=== PATIENT | female | born 1950 | race Caucasian/White ===

== ENCOUNTER 2017-02-27 12:26 | Emergency (ER) | payer BC ==
[2017-02-27 12:35] VITALS: RESP 18
[2017-02-27] MEDS ORDERED: SODIUM CHLORIDE 0.9% 1,000 ML IV STA (13:58)
--- NOTE | 2017-02-27 14:01 | ED ---
General Adult HPI - General Chief complaint: Recheck/Abnormal Lab/Rx Stated complaint: Med refill Time Seen by Provider: 02/27/17 13:35 Source: patient, RN notes reviewed Mode of arrival: ambulatory Limitations: no limitations - History of Present Illness Initial comments: Patient 66-year-old female who presents emergency room today with a chief complaint of joint aches and swelling to her feet. She states that she stopped taking her thyroid medication or 5 weeks ago. She states she was in the process of changing family doctor she became dizzy had a hard time getting into an family doctor and has an appointment next week. She states that over the last 3 days that she's been feeling worse. She states she feels "achy". She states that she's noticed the swelling down to her legs. States never had this problem before. She states she wakes up in the morning and at times had some episodes of hyperventilating. She states that she is unsure if it's to some anxiety. She denies any other symptoms or complaints. Patient denies any recent fever, chills, shortness of breath, chest pain, back pain, abdominal pain , nausea or vomiting, numbness or tingling, dysuria or hematuria, constipation or diarrhea, headaches or visual changes, or any other complaints. - Related Data Home Medications Medication Instructions Recorded Confirmed Thyroid,Pork [[place] Thyroid] 90 mg PO DAILY 02/27/17 02/27/17 Venlafaxine HCl [Effexor XR] 150 mg PO DAILY 02/27/17 02/27/17 Previous Rx's Medication Instructions Recorded Thyroid,Pork [[place] Thyroid] 90 mg PO DAILY #30 tab 02/27/17 amLODIPine [Norvasc] 5 mg PO DAILY #30 tab 02/27/17 Allergies Allergy/AdvReac Type Severity Reaction Status Date / Time codeine AdvReac Nausea & Verified 02/27/17 14:17 Vomiting Review of Systems ROS Statement: Those systems with pertinent positive or pertinent negative responses have been documented in the HPI. ROS Other: All systems not noted in ROS Statement are negative. Past Medical History Past Medical History: Thyroid Disorder History of Any Multi-Drug Resistant Organisms: None Reported Past Surgical History: Tonsillectomy Past Psychological History: Anxiety, Depression Smoking Status: Never smoker Past Alcohol Use History: Occasional Past Drug Use History: None Reported General Exam - General Exam Comments Initial Comments: General: The patient is awake and alert, in no distress, and does not appear acutely ill. Eye: Pupils are equal, round and reactive to light, extra-ocular movements are intact. No nystagmus. There is normal conjunctiva bilaterally. No signs of icterus. Ears, nose, mouth and throat: There are moist mucous membranes and no oral lesions. Neck: The neck is supple, there is no tenderness or JVD. Cardiovascular: There is a regular rate and rhythm. No murmur, rub or gallop is appreciated. Respiratory: Lungs are clear to auscultation, respirations are non-labored, breath sounds are equal. No wheezes, stridor, rales, or rhonchi. Gastrointestinal: Soft, non-distended, non-tender abdomen without masses or organomegaly noted. There is no rebound or guarding present. No CVA tenderness. Bowel sounds are unremarkable. Musculoskeletal: Normal ROM, no tenderness. Strength 5/5. Sensation intact. Pulses equal bilaterally 2+. Neurological: A&O x 3. CN II-XII intact, There are no obvious motor or sensory deficits. Coordination appears grossly intact. Speech is normal. Skin: Skin is warm and dry and no rashes or lesions are noted. Psychiatric: Cooperative, appropriate mood & affect, normal judgment. Limitations: no limitations Course Vital Signs 02/27/17 02/27/17 02/27/17 12:30 14:00 15:00 Temperature 98.4 F 97.5 F L 97.9 F Pulse Rate 72 62 60 Respiratory 18 18 18 Rate Blood Pressure 194/87 218/92 194/122 O2 Sat by Pulse 96 97 97 Oximetry 02/27/17 15:22 Temperature Pulse Rate Respiratory Rate Blood Pressure 179/84 O2 Sat by Pulse Oximetry Medical Decision Making - Medical Decision Making Case discussed in detail with attending physician Dr. Arreola. Patient reexamined at this time shows no signs of distress. She is resting comfortably. She states she like to be discharged home. Her labs do reveal a TSH greater than 100. Mildly elevated AST and ALT. BNP is negative. Chest x-ray negative for any acute abnormalities. Results were discussed with the patient. Her blood pressure has been elevated here in the emergency room she denies any history. Was discussed about being admitted to the hospital but she states she does not want to be admitted. She states she did rather be discharged home. Patient will be given a prescription for her thyroid medication dose that she was taking prior along with blood pressure medication. She does state she has a blood pressure cuff at home that she can continue to check her blood pressure. Patient is advised to return to emergency room if any symptoms increase or worsen. She is advised follow-up family doctor over the next 2 days. Advised return for any other concerns. She states understanding and is in agreement. - Lab Data Result diagrams: 02/27/17 14:05 02/27/17 14:05 Lab Results 02/27/17 02/27/17 02/27/17 Range/Units 13:45 14:05 14:05 WBC 8.9 (3.8-10.6) k/uL RBC 4.26 (3.80-5.40) m/uL Hgb 13.7 (11.4-16.0) gm/dL Hct 40.0 (34.0-46.0) % MCV 93.9 (80.0-100.0) fL MCH 32.1 (25.0-35.0) pg MCHC 34.2 (31.0-37.0) g/dL RDW 15.1 (11.5-15.5) % Plt Count 304 (150-450) k/uL Neutrophils % 51 % Lymphocytes % 40 % Monocytes % 4 % Eosinophils % 2 % Basophils % 1 % Neutrophils # 4.5 (1.3-7.7) k/uL Lymphocytes # 3.5 (1.0-4.8) k/uL Monocytes # 0.4 (0-1.0) k/uL Eosinophils # 0.2 (0-0.7) k/uL Basophils # 0.1 (0-0.2) k/uL Sodium (137-145) mmol/L Potassium (3.5-5.1) mmol/L Chloride (98-107) mmol/L Carbon Dioxide (22-30) mmol/L Anion Gap mmol/L BUN (7-17) mg/dL Creatinine (0.52-1.04) mg/dL Est GFR (MDRD) Af Amer (>60 ml/min/1.73 sqM) Est GFR (MDRD) Non-Af (>60 ml/min/1.73 sqM) Glucose (74-99) mg/dL Calcium (8.4-10.2) mg/dL Total Bilirubin (0.2-1.3) mg/dL AST (14-36) U/L ALT (9-52) U/L Alkaline Phosphatase (38-126) U/L NT-Pro-B Natriuret Pep pg/mL Total Protein (6.3-8.2) g/dL Albumin (3.5-5.0) g/dL TSH >100.000 H (0.465-4.680) mIU/L Urine Color Yellow Urine Appearance Cloudy H (Clear) Urine pH 6.0 (5.0-8.0) Ur Specific [place] 1.018 (1.001-1.035) Urine Protein 1+ H (Negative) Urine Glucose (UA) Negative (Negative) Urine Ketones Negative (Negative) Urine Blood Negative (Negative) Urine Nitrite Negative (Negative) Urine Bilirubin Negative (Negative) Urine Urobilinogen <2.0 (<2.0) mg/dL Ur Leukocyte Esterase Negative (Negative) Urine WBC 5 (0-5) /hpf Ur Squamous Epith Cells 11 H (0-4) /hpf Calcium Oxalate Crystal Moderate H (None) /hpf Urine Bacteria Rare H (None) /hpf Urine Mucus Few H (None) /hpf 02/27/17 02/27/17 Range/Units 14:05 14:05 WBC (3.8-10.6) k/uL RBC (3.80-5.40) m/uL Hgb (11.4-16.0) gm/dL Hct (34.0-46.0) % MCV (80.0-100.0) fL MCH (25.0-35.0) pg MCHC (31.0-37.0) g/dL RDW (11.5-15.5) % Plt Count (150-450) k/uL Neutrophils % % Lymphocytes % % Monocytes % % Eosinophils % % Basophils % % Neutrophils # (1.3-7.7) k/uL Lymphocytes # (1.0-4.8) k/uL Monocytes # (0-1.0) k/uL Eosinophils # (0-0.7) k/uL Basophils # (0-0.2) k/uL Sodium 141 (137-145) mmol/L Potassium 4.4 (3.5-5.1) mmol/L Chloride 102 (98-107) mmol/L Carbon Dioxide 30 (22-30) mmol/L Anion Gap 9 mmol/L BUN 21 H (7-17) mg/dL Creatinine 0.91 (0.52-1.04) mg/dL Est GFR (MDRD) Af Amer >60 (>60 ml/min/1.73 sqM) Est GFR (MDRD) Non-Af >60 (>60 ml/min/1.73 sqM) Glucose 91 (74-99) mg/dL Calcium 10.0 (8.4-10.2) mg/dL Total Bilirubin 0.7 (0.2-1.3) mg/dL AST 75 H (14-36) U/L ALT 59 H (9-52) U/L Alkaline Phosphatase 74 (38-126) U/L NT-Pro-B Natriuret Pep 165 pg/mL Total Protein 8.0 (6.3-8.2) g/dL Albumin 4.7 (3.5-5.0) g/dL TSH (0.465-4.680) mIU/L Urine Color Urine Appearance (Clear) Urine pH (5.0-8.0) Ur Specific [place] (1.001-1.035) Urine Protein (Negative) Urine Glucose (UA) (Negative) Urine Ketones (Negative) Urine Blood (Negative) Urine Nitrite (Negative) Urine Bilirubin (Negative) Urine Urobilinogen (<2.0) mg/dL Ur Leukocyte Esterase (Negative) Urine WBC (0-5) /hpf Ur Squamous Epith Cells (0-4) /hpf Calcium Oxalate Crystal (None) /hpf Urine Bacteria (None) /hpf Urine Mucus (None) /hpf Disposition Clinical Impression: Hypothyroidism, HTN (hypertension) Disposition: HOME SELF-CARE Condition: Stable Instructions: Hypothyroidism (ED) Additional Instructions: Please use medication as discussed. Please follow-up with family doctor in the next 2 days. Please return to emergency room if the symptoms increase or worsen or for any other concerns. Prescriptions: amLODIPine [Norvasc] 5 mg PO DAILY #30 tab Thyroid,Pork [[place] Thyroid] 90 mg PO DAILY #30 tab Referrals: None,Stated [Primary Care Provider] - 1-2 days Leyla Queen MD [STAFF PHYSICIAN] - 1-2 days Time of Disposition: 15:45
[2017-02-27] MEDS ORDERED: hydrALAZINE HCL 20 MG/ML 1 ML VIAL IVP STA (14:19)
[2017-02-27 14:22] LABS: Basophils # (A) 0.1 k/uL (0-0.2); Basophils % (A) 1 %; CH 32.6; CHCM 34.9; Eosinophils # (A) 0.2 k/uL (0-0.7); Eosinophils % (A) 2 %; HDW 2.67; HGB 13.7 gm/dL (11.4-16.0); Luc # (Auto) 0.19; Luc % (Auto) 2; Lymphocytes # (A) 3.5 k/uL (1.0-4.8); Lymphocytes % (A) 40 %; MCH 32.1 pg (25.0-35.0); MCHC 34.2 g/dL (31.0-37.0); MCV 93.9 fL (80.0-100.0); Mean Platelet Volume 7.5; Monocytes # (A) 0.4 k/uL (0-1.0); Monocytes % (A) 4 %; Neutrophils # (A) 4.5 k/uL (1.3-7.7); Neutrophils % (A) 51 %; RBC 4.26 m/uL (3.80-5.40); RDW 15.1 % (11.5-15.5); WBC 8.9 k/uL (3.8-10.6); WBC (Perox) 8.47
[2017-02-27 14:35] LABS: Appearance,Urine Cloudy (Clear); Bacteria,Urine Rare /hpf; Bilirubin,Urine Negative (Negative); Calcium Oxalate Crystals,Urine Moderate /hpf; Glucose,Urine (UA) Negative (Negative); Ketones,Urine Negative (Negative); Leukocyte Esterase,Urine Negative (Negative); Mucus,Urine Few /hpf; Nitrite,Urine Negative (Negative); Particle Count 4099; Protein,Urine 1+ (Negative); Specific Gravity,Urine 1.018 (1.001-1.035); Squamous Epithelial Cell,Urine 11 /hpf (0-4); UA Billing (MACRO vs. MICRO) MICRO; Urobilinogen,Urine <2.0 mg/dL (<2.0); WBC,Urine 5 /hpf (0-5)
[2017-02-27 14:47] LABS: ALT 59 U/L (9-52); AST 75 U/L (14-36); Alkaline Phosphatase 74 U/L (38-126); Anion Gap 9 mmol/L; Blood Urea Nitrogen 21 mg/dL (7-17); Carbon Dioxide 30 mmol/L (22-30); Chloride 102 mmol/L (98-107); Glucose 91 mg/dL (74-99); Non-African American GFR(MDRD) >60 (>60 ml/min/1.73 sqM); Potassium 4.4 mmol/L (3.5-5.1); Sodium 141 mmol/L (137-145); Total Bilirubin 0.7 mg/dL (0.2-1.3)
[2017-02-27] MEDS ORDERED: ALPRAZolam 0.5 MG TAB PO STA (15:19)
--- NOTE | 2017-02-27 15:20 | XR ---
EXAMINATION TYPE: XR chest 2V DATE OF EXAM: 02/27/2017 COMPARISON: NONE HISTORY: Leg swelling per order. Retention per patient. TECHNIQUE: Frontal and lateral views of the chest are obtained. FINDINGS: There is no focal air space opacity, pleural effusion, or pneumothorax seen. The cardiac silhouette size is mildly enlarged. The osseous structures are intact. IMPRESSION: Mild cardiomegaly without acute pulmonary process.
[2017-02-27 16:16] VITALS: BP 160/80; PULSE 72; TEMP 97.8
== END 2017-02-27 16:10 | disposition home or self-care (01) ==
LOC: EC 12:26
DX: E03.9 Hypothyroidism, unspecified (principal); I10 Essential (primary) hypertension; F32.9 Major depressive disorder, single episode, unspecified; Z88.5 Allergy status to narcotic agent; Z79.899 Other long term (current) drug therapy
CPT/HCPCS: 99283; 96374; 96361; 36415; 84439; 83880; 80053; 84443; 85025; 81001; 71020; J0360

== ENCOUNTER 2019-01-07 13:03 | Inpatient (IN) | payer BC, MEDICARE ==
[2019-01-07] MEDS ORDERED: SODIUM CHLORIDE 0.9% 1,000 ML IV STA ×3 (13:13→13:50)
--- NOTE | 2019-01-07 13:18 | ED ---
Abdominal Pain HPI - General Stated Complaint: Vomiting Time Seen by Provider: 01/07/19 13:03 Source: patient, family, EMS, RN notes reviewed Mode of arrival: EMS - History of Present Illness Initial Comments: This is a 68-year-old female with a necessity benign history except for diagnosis of ovarian cancer who states she received her first chemotherapy 3 days ago. After the first day she felt okay but progressively gotten more weak with nausea and today she was so weak she couldn't walk. She has no complaints of fevers chills or sweats she was noted have a pulse ox of 70% room air 95% on 4 L. She does take oxygen at home. Per her sister he recently had a thoracentesis she also had fluid in her abdomen. She does complain some mild discomfort in her abdomen as it is distended she has no focal weakness is generalized weakness really no other modifying factors MD Complaint: other - Related Data Home Medications Medication Instructions Recorded Confirmed Venlafaxine HCl [Effexor XR] 150 mg PO DAILY 02/27/17 01/07/19 ALPRAZolam [Xanax] 0.5 mg PO TID PRN 01/07/19 01/07/19 amLODIPine [Norvasc] 10 mg PO DAILY 01/07/19 01/07/19 Previous Rx's Medication Instructions Recorded Thyroid,Pork [[place] Thyroid] 90 mg PO DAILY #30 tab 02/27/17 Allergies Allergy/AdvReac Type Severity Reaction Status Date / Time penicillin V Allergy Unknown Verified 01/07/19 13:40 codeine AdvReac Nausea & Verified 02/27/17 14:17 Vomiting Review of Systems ROS Statement: Those systems with pertinent positive or pertinent negative responses have been documented in the HPI. ROS Other: All systems not noted in ROS Statement are negative. Past Medical History Past Medical History: Thyroid Disorder History of Any Multi-Drug Resistant Organisms: None Reported Past Surgical History: Tonsillectomy Past Psychological History: Anxiety, Depression Smoking Status: Never smoker Past Alcohol Use History: Occasional Past Drug Use History: None Reported General Exam - General Exam Comments Initial Comments: This is a well-developed well-nourished awake alert oriented 3 female General appearance: alert, in no apparent distress Head exam: Present: atraumatic, normocephalic, normal inspection Eye exam: Present: normal appearance, PERRL, EOMI. Absent: scleral icterus, conjunctival injection, periorbital swelling ENT exam: Present: mucous membranes dry Neck exam: Present: normal inspection. Absent: tenderness, meningismus, lymphadenopathy Respiratory exam: Absent: respiratory distress, wheezes, rales, rhonchi, stridor Cardiovascular Exam: Present: regular rate, normal rhythm, normal heart sounds. Absent: systolic murmur, diastolic murmur, rubs, gallop, clicks GI/Abdominal exam: Present: soft, distended, normal bowel sounds, other ( Evidence clinically of ascites). Absent: tenderness, guarding, rebound, rigid Extremities exam: Present: normal inspection, full ROM, normal capillary refill. Absent: tenderness, pedal edema, joint swelling, calf tenderness Back exam: Present: normal inspection Neurological exam: Present: alert, oriented X3, CN II-XII intact Psychiatric exam: Present: normal affect, normal mood Skin exam: Present: warm, dry, intact, normal color. Absent: rash Course Vital Signs 01/07/19 13:19 Temperature 98.4 F Pulse Rate 95 Respiratory 16 Rate Blood Pressure 134/84 O2 Sat by Pulse 90 L Oximetry Medical Decision Making - Medical Decision Making Patient is feeling a little bit better after IV fluid she still is weak no focal deficits we a long discussion regarding disposition patient and his not quite for discharge due to her symptoms which likely largely due to dehydration. We did discuss transfer versus staying in this facility she requests that she can say here I did discuss the case with Dr. Jarvis patient will be admitted for IV hydration. - Lab Data Result diagrams: 01/07/19 13:17 01/07/19 13:17 Lab Results 01/07/19 01/07/19 01/07/19 Range/Units 13:17 13:17 13:17 WBC 11.7 H (3.8-10.6) k/uL RBC 3.38 L (3.80-5.40) m/uL Hgb 9.4 L (11.4-16.0) gm/dL Hct 29.8 L (34.0-46.0) % MCV 88.1 (80.0-100.0) fL MCH 27.7 (25.0-35.0) pg MCHC 31.4 (31.0-37.0) g/dL RDW 14.4 (11.5-15.5) % Plt Count 529 H (150-450) k/uL Neutrophils % 93 % Lymphocytes % 4 % Monocytes % 3 % Eosinophils % 0 % Basophils % 0 % Neutrophils # 10.9 H (1.3-7.7) k/uL Lymphocytes # 0.4 L (1.0-4.8) k/uL Monocytes # 0.3 (0-1.0) k/uL Eosinophils # 0.0 (0-0.7) k/uL Basophils # 0.0 (0-0.2) k/uL Hypochromasia Moderate Sodium 138 (137-145) mmol/L Potassium 3.8 (3.5-5.1) mmol/L Chloride 104 (98-107) mmol/L Carbon Dioxide 27 (22-30) mmol/L Anion Gap 7 mmol/L BUN 35 H (7-17) mg/dL Creatinine 0.60 (0.52-1.04) mg/dL Est GFR (CKD-EPI)AfAm >90 (>60 ml/min/1.73 sqM) Est GFR (CKD-EPI)NonAf >90 (>60 ml/min/1.73 sqM) Glucose 120 H (74-99) mg/dL Calcium 7.5 L (8.4-10.2) mg/dL Magnesium 1.9 (1.6-2.3) mg/dL Total Bilirubin 0.6 (0.2-1.3) mg/dL AST 48 H (14-36) U/L ALT 34 (9-52) U/L Alkaline Phosphatase 131 H (38-126) U/L Total Creatine Kinase 31 (30-135) U/L CK-MB (CK-2) 0.7 (0.0-2.4) ng/mL CK-MB (CK-2) Rel Index 2.3 Total Protein 5.2 L (6.3-8.2) g/dL Albumin 2.4 L (3.5-5.0) g/dL Urine Color Urine Appearance (Clear) Urine pH (5.0-8.0) Ur Specific [place] (1.001-1.035) Urine Protein (Negative) Urine Glucose (UA) (Negative) Urine Ketones (Negative) Urine Blood (Negative) Urine Nitrite (Negative) Urine Bilirubin (Negative) Urine Urobilinogen (<2.0) mg/dL Ur Leukocyte Esterase (Negative) Urine WBC (0-5) /hpf Ur Squamous Epith Cells (0-4) /hpf Urine Bacteria (None) /hpf Urine Mucus (None) /hpf 01/07/19 Range/Units 13:17 WBC (3.8-10.6) k/uL RBC (3.80-5.40) m/uL Hgb (11.4-16.0) gm/dL Hct (34.0-46.0) % MCV (80.0-100.0) fL MCH (25.0-35.0) pg MCHC (31.0-37.0) g/dL RDW (11.5-15.5) % Plt Count (150-450) k/uL Neutrophils % % Lymphocytes % % Monocytes % % Eosinophils % % Basophils % % Neutrophils # (1.3-7.7) k/uL Lymphocytes # (1.0-4.8) k/uL Monocytes # (0-1.0) k/uL Eosinophils # (0-0.7) k/uL Basophils # (0-0.2) k/uL Hypochromasia Sodium (137-145) mmol/L Potassium (3.5-5.1) mmol/L Chloride (98-107) mmol/L Carbon Dioxide (22-30) mmol/L Anion Gap mmol/L BUN (7-17) mg/dL Creatinine (0.52-1.04) mg/dL Est GFR (CKD-EPI)AfAm (>60 ml/min/1.73 sqM) Est GFR (CKD-EPI)NonAf (>60 ml/min/1.73 sqM) Glucose (74-99) mg/dL Calcium (8.4-10.2) mg/dL Magnesium (1.6-2.3) mg/dL Total Bilirubin (0.2-1.3) mg/dL AST (14-36) U/L ALT (9-52) U/L Alkaline Phosphatase (38-126) U/L Total Creatine Kinase (30-135) U/L CK-MB (CK-2) (0.0-2.4) ng/mL CK-MB (CK-2) Rel Index Total Protein (6.3-8.2) g/dL Albumin (3.5-5.0) g/dL Urine Color Yellow Urine Appearance Clear (Clear) Urine pH 6.0 (5.0-8.0) Ur Specific [place] 1.029 (1.001-1.035) Urine Protein 1+ H (Negative) Urine Glucose (UA) Negative (Negative) Urine Ketones Negative (Negative) Urine Blood Small H (Negative) Urine Nitrite Negative (Negative) Urine Bilirubin Negative (Negative) Urine Urobilinogen >12.0 (<2.0) mg/dL Ur Leukocyte Esterase Small H (Negative) Urine WBC 12 H (0-5) /hpf Ur Squamous Epith Cells 3 (0-4) /hpf Urine Bacteria Rare H (None) /hpf Urine Mucus Rare H (None) /hpf - EKG Data -: EKG Interpreted by Me EKG shows normal: sinus rhythm (EKG shows sinus rhythm with a short CT interval ventricular rate 92 CT interval 96 QRS 76 QT since QTC 354/[address]-T wave changes.) - Radiology Data Radiology results: image reviewed (I did review the imaging evidence a right pleural effusion slight left pleural effusion.) Disposition Clinical Impression: Dehydration, Ovarian cancer, Failure to thrive, Weakness Disposition: ADMITTED IP TO THIS [facility] Condition: Fair Referrals: None,Stated [Primary Care Provider] - 1-2 days
[2019-01-07 13:30] LABS: Basophils % (A) 0 %; Eosinophils % (A) 0 %; HCT 29.8 % (34.0-46.0); HGB 9.4 gm/dL (11.4-16.0); Hypochromasia Moderate; Lymphocytes # (A) 0.4 k/uL (1.0-4.8); Lymphocytes % (A) 4 %; MCH 27.7 pg (25.0-35.0); MCHC 31.4 g/dL (31.0-37.0); MCV 88.1 fL (80.0-100.0); Mean Platelet Volume 7.8; Monocytes # (A) 0.3 k/uL (0-1.0); Monocytes % (A) 3 %; Neutrophils # (A) 10.9 k/uL (1.3-7.7); Neutrophils % (A) 93 %; Platelet Count 529 k/uL (150-450); RBC 3.38 m/uL (3.80-5.40); RDW 14.4 % (11.5-15.5); WBC 11.7 k/uL (3.8-10.6)
[2019-01-07 13:39] LABS: ALT 34 U/L (9-52); AST 48 U/L (14-36); Albumin 2.4 g/dL (3.5-5.0); Alkaline Phosphatase 131 U/L (38-126); Anion Gap 7 mmol/L; Blood Urea Nitrogen 35 mg/dL (7-17); Calcium 7.5 mg/dL (8.4-10.2); Carbon Dioxide 27 mmol/L (22-30); Chloride 104 mmol/L (98-107); Glucose 120 mg/dL (74-99); Magnesium 1.9 mg/dL (1.6-2.3); Potassium 3.8 mmol/L (3.5-5.1); Sodium 138 mmol/L (137-145); Total Bilirubin 0.6 mg/dL (0.2-1.3); Total Protein 5.2 g/dL (6.3-8.2)
[2019-01-07 13:45] LABS: Appearance,Urine Clear (Clear); Bacteria,Urine Rare /hpf; Bilirubin,Urine Negative (Negative); Blood,Urine Small (Negative); Color,Urine Yellow; Glucose,Urine (UA) Negative (Negative); Ketones,Urine Negative (Negative); Leukocyte Esterase,Urine Small (Negative); Mucus,Urine Rare /hpf; Nitrite,Urine Negative (Negative); Protein,Urine 1+ (Negative); Specific Gravity,Urine 1.029 (1.001-1.035); Squamous Epithelial Cell,Urine 3 /hpf (0-4); Urobilinogen,Urine >12.0 mg/dL (<2.0)
[2019-01-07 14:02] LABS: Creatine Kinase MB 0.7 ng/mL (0.0-2.4)
[2019-01-07] MEDS ORDERED: HYDROmorphone 1 MG/ML 1 ML SYRINGE IVP STA (14:16)
--- NOTE | 2019-01-07 14:51 | XR ---
EXAMINATION TYPE: XR chest 2V DATE OF EXAM: 01/07/2019 COMPARISON: 02/27/2017 HISTORY: 68-year-old female with cough TECHNIQUE: AP and lateral views FINDINGS: The heart is upper limits of normal in size. Right anterior chest wall injection port with catheter t ip at the cavoatrial junction. There is a moderate right and small left pleural effusions with bibasi lar opacities. IMPRESSION: Moderate right and small left pleural effusions with bibasilar atelectasis and/or consolidation.
--- NOTE | 2019-01-07 14:52 | XR ---
EXAMINATION TYPE: XR KUB DATE OF EXAM: 01/07/2019 CLINICAL DATA: 68-year-old female with pain, status post chemotherapy for ovarian cancer, [facility] COMPARISON: None FINDINGS: Supine imaging limited for assessment of free intraperitoneal air. Nonspecific bowel gas pattern, generalized haziness throughout the abdomen overall positive bowel gas . IMPRESSION: Nonspecific bowel gas pattern with relative positive bowel gas. Generalized haziness throughout the a bdomen could represent underlying ascites.
[2019-01-07] MEDS ORDERED: ONDANSETRON 4 MG/2 ML VIAL IVP PRN (15:14)
[2019-01-07] MEDS ORDERED: NALOXONE 0.4 MG/ML 1 ML VIAL IV PRN (15:14)
--- NOTE | 2019-01-07 15:55 | P.HPIM ---
History of Present Illness H&P Date: 01/07/19 Chief Complaint: weakness with nausea and vomiting The patient is a obese 68-year-old female with recently diagnosed ovarian cancer who began chemotherapy last week at [facility] today she presents to the ER with chief complaint of nausea vomiting and weakness. Apparently the patient began chemotherapy on Wednesday and yesterday began having profound nausea vomiting and inability to keep food or fluids down, she reports decreased appetite, and reports generalized weakness worsen her lower extremities and reports difficulty ambulating due to the weakness. Apparently the patient wears 3 L of oxygen secondary to recurrent malignant pleural effusions, she reports having a thoracentesis approximately 2 weeks ago and reports abdominal paracentesis a week ago where approximately 3 and 4 L respectively was obtained. She mentions increasing abdominal distention with some discomfort. She denies any chest pain or palpitations, also denies any subjective fevers chills or night sweats. The patient is currently receiving chemotherapy through the [facility] system. In the ER the patient had a comprehensive workup she had a KUB and chest x-ray, that showed a nonspecific bowel gas pattern generalized haziness throughout abdomen which could represent underlying ascites and a moderate right and small, Left pleural effusion with bibasilar atelectasis or consolidation. Remarkable labs included a WBC of 11.7, hemoglobin 9.4, platelets 529. Serum sodium 138. Potassium 3.8, BUN 35, creatinine 0.6. AST 48, ALT 34, alk phos 131, total protein 5.2, albumin 2.4, urinalysis +1 protein, urine WBCs 12. The patient was given 2 L of normal saline and placed on maintenance fluids and started on Dilaudid for pain. Review of Systems Pertinent positives per HPI all other systems otherwise negative Past Medical History Past Medical History: Thyroid Disorder History of Any Multi-Drug Resistant Organisms: None Reported Past Surgical History: Tonsillectomy Past Psychological History: Anxiety, Depression Smoking Status: Never smoker Past Alcohol Use History: Occasional Past Drug Use History: None Reported Medications and Allergies Home Medications Medication Instructions Recorded Confirmed Type Thyroid,Pork [[place] Thyroid] 90 mg PO DAILY #30 tab 02/27/17 01/07/19 Rx Venlafaxine HCl [Effexor XR] 150 mg PO DAILY 02/27/17 01/07/19 History ALPRAZolam [Xanax] 0.5 mg PO TID PRN 01/07/19 01/07/19 History amLODIPine [Norvasc] 10 mg PO DAILY 01/07/19 01/07/19 History Allergies Allergy/AdvReac Type Severity Reaction Status Date / Time penicillin V Allergy Unknown Verified 01/07/19 13:40 codeine AdvReac Nausea & Verified 02/27/17 14:17 Vomiting Physical Exam Vitals: Vital Signs Temp Pulse Resp BP Pulse Ox 01/07/19 13:19 98.4 F 95 16 134/84 90 L Intake and Output 01/07/19 01/07/19 01/07/19 06:59 14:59 22:59 Other: Weight 81.647 kg Constitutional: No acute distress, appears fatigued and drowsy but arousable Eyes: Anicteric sclerae, moist conjunctiva, no lid-lag, PERRLA ENMT: NC/AT,Oropharynx clear, no erythema, exudates Neck:Supple, FROM, no masses, or JVD, No carotid bruits; No thyromegaly Lungs: Diminished in the bases bilaterally, poor aeration right greater than left,Normal respiratory effort, no accessory muscle use on 3 L nasal cannula Cardiovascular: Heart regular in rate and rhythm, No murmurs, gallops, or rubs no peripheral edema Abdominal: Soft Nontender, distended abdomen, no guarding, no rebound or rigidity, noted shifting dullness Skin: Normal temperature, tone, texture, turgor, No induration No subcutaneous nodules, No rash, lesions, No ulcers Extremities:No digital cyanosis No clubbing, Pedal pulses intact and symmetrical Radial pulses intact and symmetrical Normal gait and station, No calf tenderness Psychiatric: Alert and oriented to person, place and time, Appropriate affect Intact judgement Neuro: Muscles Strength 5/5 in all 4 extremities, Sensation to light touch g rossly present throughout, Cranial nerves II-XII grossly intact. No focal sensory deficits Results CBC & Chem 7: 01/07/19 13:17 01/07/19 13:17 Labs: Abnormal Lab Results - Last 24 Hours (Table) 01/07/19 01/07/19 01/07/19 Range/Units 13:17 13:17 13:17 WBC 11.7 H (3.8-10.6) k/uL RBC 3.38 L (3.80-5.40) m/uL Hgb 9.4 L (11.4-16.0) gm/dL Hct 29.8 L (34.0-46.0) % Plt Count 529 H (150-450) k/uL Neutrophils # 10.9 H (1.3-7.7) k/uL Lymphocytes # 0.4 L (1.0-4.8) k/uL BUN 35 H (7-17) mg/dL Glucose 120 H (74-99) mg/dL Calcium 7.5 L (8.4-10.2) mg/dL AST 48 H (14-36) U/L Alkaline Phosphatase 131 H (38-126) U/L Total Protein 5.2 L (6.3-8.2) g/dL Albumin 2.4 L (3.5-5.0) g/dL Urine Protein 1+ H (Negative) Urine Blood Small H (Negative) Ur Leukocyte Esterase Small H (Negative) Urine WBC 12 H (0-5) /hpf Urine Bacteria Rare H (None) /hpf Urine Mucus Rare H (None) /hpf Assessment and Plan (1) Acute and chronic respiratory failure ([id number]) Current Visit: Yes Status: Acute Code(s): J96.20 - ACUTE AND CHR RESP FAILURE, UNSP W HYPOXIA OR HYPERCAPNIA SNOMED Code(s): 81961776 (2) Intractable nausea and vomiting Current Visit: Yes Status: Acute Code(s): R11.2 - NAUSEA WITH VOMITING, UNSPECIFIED SNOMED Code(s): 913214519 (3) Malignant pleural effusion Current Visit: Yes Status: Acute Code(s): J91.0 - MALIGNANT PLEURAL EFFUSION SNOMED Code(s): 95207274 (4) Weakness Current Visit: Yes Status: Acute Code(s): R53.1 - WEAKNESS SNOMED Code(s): 45636008 (5) Ascites, malignant Current Visit: Yes Status: Acute Code(s): R18.0 - MALIGNANT ASCITES SNOMED Code(s): 778271119 (6) Ovarian cancer Current Visit: Yes Status: Acute Code(s): C56.9 - MALIGNANT NEOPLASM OF UNSPECIFIED OVARY SNOMED Code(s): 172404220 (7) Weakness Current Visit: Yes Status: Acute Code(s): R53.1 - WEAKNESS SNOMED Code(s): 57124211 Plan: The patient is in observation anticipate a less than 2 midnight stay after presenting with intractable nausea vomiting abdominal pain likely secondary to recent round of chemotherapy, we'll treat supportively with antiemetics Zofran scopolamine patch Phenergan as needed, will rehydrate her with IV fluids. The patient appears to have chronic respiratory failure secondary to recurrent malignant pleural effusion we'll obtain a chest ultrasound and consult pulmonary to a thoracentesis, also obtain abdominal ultrasound to evaluate for paracentesis. The patient is noted to have a normocytic anemia likely secondary to underlying ovarian cancer and recent chemotherapy. We'll plan to consult hematology oncology Dr. Melgar for further recommendations. We'll place patient on DVT prophylaxis with SCDs and heparin. Continue to follow her clinical course CODE STATUS full code Discussed plan of care with: Patient and her sister Anticipated discharge 1-2 days Advanced Care Planning Active diagnoses: Ovarian cancer, malignant pleural effusion, abdominal ascites Background: Patient is admitted with intractable nausea vomiting abdominal pain with history of ovarian cancer with malignant pleural effusion and ascites Discussion: Person(s) present and participating in discussion: The patient, myself, and patient's sister Summary: The patient would like to proceed with CPR Time spent: Total time spent face to face in education and discussion directly related to advanced care planning: >15 minutes Time with Patient: Greater than 30
--- NOTE | 2019-01-07 16:50 | US ---
EXAMINATION TYPE: US chest DATE OF EXAM: 01/07/2019 COMPARISON: Radiograph same day CLINICAL HISTORY: 68-year-old female with pleural effusion TECHNIQUE: Targeted ultrasound of the posterior lower bilateral hemithoraces FINDINGS: EXAM MEASUREMENTS: Right Pleural Effusion pocket size: 10.9 cm Right skin surface to fluid distance: 3.6 cm Left Pleural Effusion pocket size: 9.0 cm Left skin surface to fluid distance: 3.4 cm Right side marked for possible thoracentesis outside the dept. Left side marked for possible thoracentesis outside the dept. Pulmonologists are able to review the images in the patient?s EMR. IMPRESSIONS: Moderate right greater than left pleural effusions.
--- NOTE | 2019-01-07 16:53 | US ---
EXAMINATION TYPE: US abdomen limited DATE OF EXAM: 01/07/2019 COMPARISON: NONE CLINICAL HISTORY: 68-year-old female with ascites TECHNIQUE: Multiple sonographic images of the 4 abdominal quadrants were obtained. Findings: Multiple moderate abdominopelvic ascites, greatest in the right lower quadrant. Internal septations a re demonstrated within the ascites fluid. IMPRESSION: Small to moderate amount of abdominopelvic ascites, greatest in the right lower quadrant, shows mild complexity with internal septations.
[2019-01-07] MEDS: HEPARIN SODIUM,PORCINE 5,000 UNIT/ML 1 ML VIAL SQ SCH (18:10)
[2019-01-07] MEDS: SODIUM CHLORIDE 0.9% 1,000 ML IV SCH ×2 (18:30→23:00)
[2019-01-07] MEDS: VENLAFAXINE HCL ER 150 MG CAP PO SCH (21:11)
[2019-01-07] MEDS: amLODIPine 10 MG TAB PO SCH (21:11)
[2019-01-07] MEDS: SCOPOLAMINE 1.5MG/72HR PATCH TRANSDERM SCH (22:13)
[2019-01-08] MEDS: HYDROmorphone 1 MG/ML 1 ML SYRINGE IVP PRN ×2 (01:08→07:54)
[2019-01-08] MEDS: HEPARIN SODIUM,PORCINE 5,000 UNIT/ML 1 ML VIAL SQ SCH ×4 (01:09→19:55)
[2019-01-08] MEDS: SODIUM CHLORIDE 0.9% 1,000 ML IV SCH (03:00)
[2019-01-08] MEDS: LEVOFLOXACIN 500MG-D5W PMX 500 MG in DEXTROSE/WATER 1 100ML.BAG IVPB SCH (07:51)
[2019-01-08] MEDS: amLODIPine 10 MG TAB PO SCH (07:53)
[2019-01-08] MEDS: THYROID, PORK 30 MG TAB PO SCH (07:53)
[2019-01-08] MEDS: VENLAFAXINE HCL ER 150 MG CAP PO SCH (07:53)
--- NOTE | 2019-01-08 08:31 | XR ---
EXAMINATION TYPE: XR chest 1V portable DATE OF EXAM: 01/08/2019 HISTORY: Shortness of breath. COMPARISON: 01/07/2019 TECHNIQUE: Single view of the chest is submitted. FINDINGS: Demonstrated are scattered senescent parenchymal change. Basilar infiltrates and/or atelectasis remain unchanged. Suspect small effusions. The heart is stable. Hilar and mediastinal structures are within normal limits. Degenerative changes are seen of the dorsal spine. IMPRESSION: 1. Basilar infiltrates and/or atelectasis remain unchanged. Suspect small effusions.
[2019-01-08 08:50] LABS: Basophils % (A) 1 %; Eosinophils % (A) 0 %; HCT 28.3 % (34.0-46.0); HGB 8.7 gm/dL (11.4-16.0); Hypochromasia Marked; Lymphocytes # (A) 0.4 k/uL (1.0-4.8); Lymphocytes % (A) 6 %; MCH 27.6 pg (25.0-35.0); MCHC 30.7 g/dL (31.0-37.0); MCV 89.8 fL (80.0-100.0); Mean Platelet Volume 7.7; Monocytes # (A) 0.2 k/uL (0-1.0); Monocytes % (A) 4 %; Neutrophils # (A) 6.1 k/uL (1.3-7.7); Neutrophils % (A) 89 %; Platelet Count 435 k/uL (150-450); RBC 3.15 m/uL (3.80-5.40); RDW 14.8 % (11.5-15.5); WBC 6.8 k/uL (3.8-10.6)
[2019-01-08 08:55] LABS: ALT 36 U/L (9-52); AST 74 U/L (14-36); Albumin 2.7 g/dL (3.5-5.0); Alkaline Phosphatase 276 U/L (38-126); Anion Gap 8 mmol/L; Blood Urea Nitrogen 35 mg/dL (7-17); Calcium 7.5 mg/dL (8.4-10.2); Carbon Dioxide 25 mmol/L (22-30); Chloride 105 mmol/L (98-107); Glucose 110 mg/dL (74-99); Potassium 4.5 mmol/L (3.5-5.1); Sodium 138 mmol/L (137-145); Total Bilirubin 0.6 mg/dL (0.2-1.3); Total Protein 5.5 g/dL (6.3-8.2)
[2019-01-08] MEDS ORDERED: amLODIPine 10 MG TAB PO SCH (09:00)
[2019-01-08] MEDS ORDERED: VENLAFAXINE HCL ER 150 MG CAP PO SCH (09:00)
[2019-01-08] MEDS ORDERED: ENOXAPARIN 80 MG/0.8 ML SYRINGE SQ STA (09:44)
--- NOTE | 2019-01-08 10:47 | P.CNPUL ---
History of Present Illness Consult date: 01/08/19 Requesting physician: Pan Jarvis Reason for consult: dyspnea Chief complaint: Bilateral pleural effusions, hypoxemic respiratory failure History of present illness: This is a 68-year-old white female patient with a recent diagnosis of ovarian cancer recently started on chemotherapy last week at [facility], who presented on 01/07/2019 with complaints of progressive weakness, nausea, vomiting, inability to keep food and fluids down. Patient was having difficulty walking related to weakness. She denied any fever or chills, she was hypoxemic with a pulse ox of 70% on room air. She does wear home O2. Patient gives a history of recent thoracentesis would removal of 2 L from the right chest, and paracentesis with unknown amount of fluid removed. Did complain of some mild distention and discomfort in her abdomen. Past medical history is significant for hypothyroidism, anxiety and depression, patient is a lifetime nonsmoker. Chest x-ray showed moderate right and small left pleural effusion with bibasilar atelectasis. Flat plate of the abdomen was obtained and showed nonspecific bowel gas pattern, with generalized haziness throughout the abdomen representing underlying ascites. EKG showed normal sinus rhythm. Ultrasound of the chest showed 10.9 cm pocket of pleural fluid on the right, and 9.0 cm fluid pocket on the left. Labs did not show significant leukocytosis, with the white blood cell count on admission was 11.7, hemoglobin of 9.4, platelet count of 529, d-dimer was significantly elevated at 11.25, electrolytes are within normal limits, BUN of 35 creatinine 0.60, urinalysis showed small amount of blood, small amount of leuks, 12 WBCs, rare bacteria. We're consulted in regards to bilateral pleural effusions. Review of Systems All systems: negative Constitutional: Denies chills, Denies fever Eyes: denies blurred vision, denies pain Ears, nose, mouth and throat: Denies headache, Denies sore throat Cardiovascular: Reports dyspnea on exertion, Reports leg edema, Denies chest pain, Denies shortness of breath Respiratory: Reports dyspnea, Reports home oxygen, Denies cough Gastrointestinal: Denies abdominal pain, Denies diarrhea, Denies nausea, Denies vomiting Genitourinary: Denies dysuria, Denies hematuria Musculoskeletal: Denies myalgias Integumentary: Denies pruritus, Denies rash Neurological: Denies numbness, Denies weakness Psychiatric: Denies anxiety, Denies depression Endocrine: Denies fatigue, Denies weight change Past Medical History Past Medical History: Thyroid Disorder History of Any Multi-Drug Resistant Organisms: None Reported Past Surgical History: Tonsillectomy Past Anesthesia/Blood Transfusion Reactions: No Reported Reaction Past Psychological History: Anxiety, Depression Smoking Status: Never smoker Past Alcohol Use History: Occasional Past Drug Use History: None Reported - Past Family History Mother Family Medical History: Unable to Obtain Father Family Medical History: No Reported History Medications and Allergies Home Medications Medication Instructions Recorded Confirmed Type Thyroid,Pork [[place] Thyroid] 90 mg PO DAILY #30 tab 02/27/17 01/07/19 Rx Venlafaxine HCl [Effexor XR] 150 mg PO DAILY 02/27/17 01/07/19 History ALPRAZolam [Xanax] 0.5 mg PO TID PRN 01/07/19 01/07/19 History amLODIPine [Norvasc] 10 mg PO DAILY 01/07/19 01/07/19 History Allergies Allergy/AdvReac Type Severity Reaction Status Date / Time penicillin V Allergy Unknown Verified 01/07/19 13:40 codeine AdvReac Nausea & Verified 02/27/17 14:17 Vomiting Physical Exam Vitals: Vital Signs Temp Pulse Pulse Resp BP BP Pulse Ox 01/08/19 09:30 92 L 01/08/19 07:00 36 H 01/08/19 05:03 98.8 F 92 22 156/77 01/08/19 04:35 93 L 01/08/19 04:33 95 01/08/19 04:20 22 92 L 01/08/19 04:16 22 87 L 01/08/19 04:07 22 88 L 01/08/19 04:00 22 86 L 01/07/19 22:03 97.5 F L 92 18 140/71 95 01/07/19 20:38 91 22 136/78 94 L 01/07/19 19:59 95 01/07/19 18:20 95 18 01/07/19 18:01 98.2 F 95 18 142/81 93 L 01/07/19 17:03 78 16 124/78 99 01/07/19 13:19 98.4 F 95 16 134/84 90 L Intake and Output 01/07/19 01/08/19 01/08/19 22:59 06:59 14:59 Intake Total 200 335 Balance 200 335 Intake: Intake, IV Titration 135 Amount Sodium Chloride 0.9% 1, 135 000 ml @ 45 mls/hr IV . [id number] [facility] Rx#:[id number] Oral 200 200 Other: Voiding Method Toilet # Voids 1 2 1 GENERAL EXAM: Alert, pleasant, 68-year-old white female, on 12 L oxygen with a pulse ox of 94% comfortable in no apparent distress. HEAD: Normocephalic/atraumatic. EYES: Normal reaction of pupils, equal size. Conjunctiva pink, sclera white. NOSE: Clear with pink turbinates. THROAT: No erythema or exudates. NECK: No masses, no JVD, no thyroid enlargement, no adenopathy. CHEST: No chest wall deformity. Symmetrical expansion. LUNGS: Equal air entry with no crackles, wheeze, rhonchi or dullness. Diminished breath sounds at the bases CVS: Regular rate and rhythm, normal S1 and S2, no gallops, no murmurs, no rubs ABDOMEN: Soft, nontender. No hepatosplenomegaly, normal bowel sounds, no guarding or rigidity. EXTREMITIES: No clubbing, mild lower extremity pretibial edema, no cyanosis, 2+ pulses and upper and lower extremities. MUSCULOSKELETAL: Muscle strength and tone normal. SPINE: No scoliosis or deformity SKIN: No rashes CENTRAL NERVOUS SYSTEM: Alert and oriented -3. No focal deficits, tone is normal in all 4 extremities. PSYCHIATRIC: Alert and oriented -3. Appropriate affect. Intact judgment and insight. Results - Laboratory Findings CBC and BMP: 01/08/19 08:02 01/08/19 08:02 PT/INR, D-dimer D-Dimer 11.25 mg/L FEU (<0.60) H 01/08/19 08:02 Abnormal lab findings: Abnormal Labs 01/07/19 01/07/19 01/07/19 13:17 13:17 13:17 WBC 11.7 H RBC 3.38 L Hgb 9.4 L Hct 29.8 L MCHC Plt Count 529 H Neutrophils # 10.9 H Lymphocytes # 0.4 L D-Dimer BUN 35 H Glucose 120 H Calcium 7.5 L AST 48 H Alkaline Phosphatase 131 H Total Protein 5.2 L Albumin 2.4 L Urine Protein 1+ H Urine Blood Small H Ur Leukocyte Esterase Small H Urine WBC 12 H Urine Bacteria Rare H Urine Mucus Rare H 01/08/19 01/08/19 01/08/19 08:02 08:02 08:02 WBC RBC 3.15 L Hgb 8.7 L Hct 28.3 L MCHC 30.7 L Plt Count Neutrophils # Lymphocytes # 0.4 L D-Dimer 11.25 H BUN 35 H Glucose 110 H Calcium 7.5 L AST 74 H Alkaline Phosphatase 276 H Total Protein 5.5 L Albumin 2.7 L Urine Protein Urine Blood Ur Leukocyte Esterase Urine WBC Urine Bacteria Urine Mucus - Diagnostic Findings Chest x-ray: report reviewed, image reviewed Additional studies: Ultrasound of the chest reviewed, EKG reviewed, KUB abdomen results reviewed Assessment and Plan Plan: Assessment: #1. Acute dyspnea and acute on chronic hypoxemic respiratory failure related to bilateral pleural effusions #2. Recurrent pleural effusions, and recurrent ascites, possibly related to underlying history of ovarian cancer. Recent history of right-sided thoracentesis and paracentesis at the [facility] #3. Elevated d-dimer, rule out thromboembolic event #4. Recent diagnosis of ovarian cancer, recently started on chemotherapy, the details and the staging information not available to us #5. History of hypothyroidism #6. Hypertension #7. Anxiety #8. Nonsmoker Plan: Patient underwent right-sided thoracentesis with removal of 750 mL of pleural fluid which will be sent for cytology, pleural fluid analysis, and cultures. Follow-up chest x-ray has been ordered, patient tolerated procedure well, wean FiO2, agree with workup for thromboembolic event, CTA chest, but the patient is refusing CT chest at this time, we'll obtain lower extremity Dopplers. In view of patient's ovarian cancer patient is at high risk for DVT and PE. Medical oncology has been consulted. We'll continue to follow and make further recommendations. I performed a history & physical examination of the patient and discussed their management with my nurse practitioner, Marcy Carpenter. I reviewed the nurse practitioner's note and agree with the documented findings and plan of care. Lung sounds are positive for diminished breath sounds at the bases. The findings and the impression was discussed with the patient. I attest to the documentation by the nurse practitioner. Time with Patient: Greater than 30
--- NOTE | 2019-01-08 11:08 | XR ---
EXAMINATION TYPE: XR chest 1V portable DATE OF EXAM: 01/08/2019 Comparison: 01/08/2019, earlier today Clinical History: 68-year-old female status post right thoracentesis Findings: Right anterior chest wall injection port with catheter tip at the cavoatrial junction. Heart mildly e nlarged. Mild diffuse metastatic prominence. Focal right perihilar density with new moderate sized ri ght basilar pneumothorax estimated at approximately 40%. Continued small left pleural effusion with l eft basilar opacity. Impression: Moderate sized right basilar pneumothorax following thoracentesis estimated at 40%. Focal right perih ilar opacity. Continued small left pleural effusion with left basilar atelectasis and/or consolidatio n. Findings called to [facility] on [address] [place] [address] at 11:04am.
--- NOTE | 2019-01-08 12:08 | XR ---
EXAMINATION TYPE: XR chest 1V portable DATE OF EXAM: 01/08/2019 Comparison: Earlier today Clinical History: 68-year-old female trapped lung loculated pneumothorax post thoracentesis Findings: Overall moderate sized loculated right basilar pneumothorax with adjacent right perihilar opacity, sm all left effusion, left basilar atelectasis/infiltrate remains unchanged. Impression: Stable exam with moderate sized loculated right basilar pneumothorax. Adjacent right hilar opacity is unchanged. Continued small left pleural effusion with adjacent atelectasis and/or consolidation.
--- NOTE | 2019-01-08 13:16 | US ---
EXAMINATION TYPE: US venous doppler duplex LE DATE OF EXAM: 01/08/2019 10:33 AM COMPARISON: NONE CLINICAL HISTORY: rule out DVT. Bilateral leg swelling, exam done portable. SIDE PERFORMED: Bilateral TECHNIQUE: The lower extremity deep venous system is examined utilizing real time linear array sonog alisa with graded compression, doppler sonography and color-flow sonography. VESSELS IMAGED: External Iliac Vein (EIV) Common Femoral Vein Deep Femoral Vein Greater Saphenous Vein * Femoral Vein Popliteal Vein Small Saphenous Vein * Proximal Calf Veins (* superficial vessels) Right Leg: Appears negative for DVT Left Leg: Appears negative for DVT IMPRESSION: No evidence of deep venous thrombosis in both legs.
[2019-01-08 13:34] VITALS: BMI 34.0
--- NOTE | 2019-01-08 13:38 | PCN ---
PROCEDURE NOTE OPERATIVE REPORT: Right-sided thoracentesis. PREOPERATIVE DIAGNOSES: Right pleural effusion, known history of ovarian cancer with metastasis. POSTOPERATIVE DIAGNOSES: 1. Right pleural effusion, known history of ovarian cancer with metastasis. 2. Loculated right-sided pneumothorax secondary to trapped lung. ANESTHESIA USED: 2 mL of 1% lidocaine. PROCEDURE: The patient was placed in a sitting upright position, the area below the right scapula was prepared in a sterile fashion and drapes were applied. The area which was earlier localized by ultrasound and correlated to the 8th intercostal space and tip of the scapula was anesthetized locally with lidocaine. Then, a 26-gauge needle was inserted all the way into the pleural space until the fluid was localized with the needle. Then a small tiny incision was made, and the pleural space was entered again with the catheter and needle. As soon as the fluid was obtained, the needle was pulled out of the pleural space and the catheter was advanced further into the pleural space. Free- flowing fluid, dark green in color, was removed from the right pleural space. Roughly 750 mL were removed. Procedure was well tolerated, however, postoperative chest x-ray showed a loculated basilar right-sided pneumothorax, and questionable right hilar mass, most likely consistent with trapped lung. PLAN: To repeat chest x-ray on this patient in the next hour. If the pneumothorax expands, may consider ThermoVent tube placement, however, the patient clinically felt much better, was breathing a lot easier after the procedure, and O2 saturation improved, I was able to cut down her O2 from 14 L high-flow to 8 L high-flow nasal cannula and her saturation remained in the low 90s. MMODL / IJN: [id number] /
[2019-01-08] MEDS: MORPHINE SULFATE 2 MG/ML SYRINGE IVP PRN ×2 (14:06→18:56)
[2019-01-08] MEDS: ALPRAZolam 0.5 MG TAB PO PRN (18:16)
[2019-01-09] MEDS: MORPHINE SULFATE 2 MG/ML SYRINGE IVP PRN ×4 (01:16→20:32)
[2019-01-09] MEDS: ALPRAZolam 0.5 MG TAB PO PRN (05:04)
[2019-01-09] MEDS: LEVOFLOXACIN 500MG-D5W PMX 500 MG in DEXTROSE/WATER 1 100ML.BAG IVPB SCH (07:56)
[2019-01-09] MEDS: THYROID, PORK 30 MG TAB PO SCH (07:57)
[2019-01-09] MEDS: amLODIPine 10 MG TAB PO SCH (07:57)
[2019-01-09] MEDS: HEPARIN SODIUM,PORCINE 5,000 UNIT/ML 1 ML VIAL SQ SCH ×2 (07:57→08:07)
[2019-01-09] MEDS: VENLAFAXINE HCL ER 150 MG CAP PO SCH (07:58)
--- NOTE | 2019-01-09 08:17 | P.DS ---
Providers Date of admission: 01/07/19 15:14 Expected date of discharge: 01/08/19 Attending physician: Pan Jarvis MD Consults: 01/07/19 15:38 Consult Physician Routine Consulting Provider: Marlee Gamboa Consult Reason/Comments: thoracentesis Do you want consulting provider notified?: Yes 01/07/19 16:03 Consult Physician Routine Consulting Provider: Dhruv Melgar Consult Reason/Comments: ovarian CA Do you want consulting provider notified?: Yes Primary care physician: Stated None - Discharge Diagnosis(es) (1) Acute and chronic respiratory failure ([id number]) Current Visit: Yes Status: Acute (2) Intractable nausea and vomiting Current Visit: Yes Status: Acute (3) Malignant pleural effusion Current Visit: Yes Status: Acute (4) Weakness Current Visit: Yes Status: Acute (5) Ascites, malignant Current Visit: Yes Status: Acute (6) Ovarian cancer Current Visit: Yes Status: Acute (7) Weakness Current Visit: Yes Status: Acute Hospital Course: The patient is a 68-year-old female with recently diagnosed ovarian cancer who recently started chemotherapy this past Wednesday and presented here with complaints of progressive weakness nausea vomiting and inability to keep food and fluids down, she was admitted with acute on chronic respiratory failure secondary to recurrent likely malignant pleural effusions with concern for possible thromboembolic disease such as PE as patient did have elevated d-dimer 11.25 and increasing O2 requirements and was placed on 15 L high flow oxygen. Chest ultrasound performed showed 11 cm pocket of pleural fluid on the right and 9 similar pocket on the left, pulmonary is consulted for thoracentesis and obtained 750 mL of A fluid that was sent for analysis. Abdominal ultrasound showed a small to moderate abdominal pelvic ascites greater in the right lower quadrant which shows mild complexity with internal septations. Per pulmonary is apparently a lung mass was noticed with loculated pleural effusion. The patient was treated empirically with a loading dose of Lovenox, she proceeded to refused to have any further workup here and requested to be transferred to the [facility]. [facility] was contacted and Dr. Hammonds accepted the patient for transfer. This process took approximately 35 minutes Focused exam Respiratory: Diminished in the bases, currently on 6 L nasal cannula in no apparent distress GI: Soft nontender, moderately distended, normoactive bowel sounds, shifting dullness, tympanic Patient Condition at Discharge: Fair Plan - Discharge Summary New Discharge Prescriptions: No Action Venlafaxine HCl [Effexor XR] 150 mg PO DAILY Thyroid,Pork [[place] Thyroid] 90 mg PO DAILY #30 tab amLODIPine [Norvasc] 10 mg PO DAILY ALPRAZolam [Xanax] 0.5 mg PO TID PRN PRN Reason: Anxiety Discharge Medication List Thyroid,Pork [[place] Thyroid] 90 mg PO DAILY #30 tab 02/27/17 [Rx] Venlafaxine HCl [Effexor XR] 150 mg PO DAILY 02/27/17 [History] ALPRAZolam [Xanax] 0.5 mg PO TID PRN 01/07/19 [History] amLODIPine [Norvasc] 10 mg PO DAILY 01/07/19 [History] Follow up Appointment(s)/Referral(s): None,Stated [Primary Care Provider] - 1-2 days Discharge Disposition: TRANSFER TO PSYCH HOSP/UNIT
--- NOTE | 2019-01-09 09:13 | XR ---
EXAMINATION TYPE: XR chest 1V portable DATE OF EXAM: 01/09/2019 COMPARISON: Prior chest x-ray 01/08/2019 HISTORY: Trapped lung, abnormal chest x-ray TECHNIQUE: Single frontal view of the chest is obtained. FINDINGS: The trapped lung at the right lung base is again noted. Pleural parenchymal changes are st able. Heart size is likely unchanged. IMPRESSION: Findings are stable. Trapped lung at the right lung base. There is likely left pleural e ffusion, basilar atelectasis, correlate to exclude pneumonia. Suspect cardiomegaly.
[2019-01-09] MEDS: ENOXAPARIN 80 MG/0.8 ML SYRINGE SQ SCH ×2 (10:47→20:33)
[2019-01-09 11:32] LABS: Total Protein, Body Fluid 2500 mg/dL
--- NOTE | 2019-01-09 14:14 | P.PN ---
Subjective Progress Note Date: 01/09/19 Principal diagnosis: Bilateral pleural effusions, hypoxemic respiratory failure This is a 68-year-old white female patient with a recent diagnosis of ovarian cancer recently started on chemotherapy last week at [facility], who presented on 01/07/2019 with complaints of progressive weakness, nausea, vomiting, inability to keep food and fluids down. Patient was having difficulty walking related to weakness. She denied any fever or chills, she was hypoxemic with a pulse ox of 70% on room air. She does wear home O2. Patient gives a history of recent thoracentesis would removal of 2 L from the right chest, and paracentesis with unknown amount of fluid removed. Did complain of some mild distention and discomfort in her abdomen. Past medical history is significant for hypothyroidism, anxiety and depression, patient is a lifetime nonsmoker. Chest x-ray showed moderate right and small left pleural effusion with bibasilar atelectasis. Flat plate of the abdomen was obtained and showed nonspecific bowel gas pattern, with generalized haziness throughout the abdomen representing underlying ascites. EKG showed normal sinus rhythm. Ultrasound of the chest showed 10.9 cm pocket of pleural fluid on the right, and 9.0 cm fluid pocket on the left. Labs did not show significant leukocytosis, with the white blood cell count on admission was 11.7, hemoglobin of 9.4, platelet count of 529, d-dimer was significantly elevated at 11.25, electrolytes are within normal limits, BUN of 35 creatinine 0.60, urinalysis showed small amount of blood, small amount of leuks, 12 WBCs, rare bacteria. We're consulted in regards to bilateral pleural effusions. On 01/09/2019 patient seen in follow-up on oncology floor, she is awake and alert, today she is in no acute distress, she is down to 6 L, and her pulse ox is 94%, she is afebrile, yesterday we cough 750 mL of pleural fluid from the right pleural space, today chest x-ray shows trapped lung at the right lung bas e, left pleural effusion, basilar atelectasis. Cytology results are pending, ulcers are pending, Gram stain of the pleural fluid and no organisms. Pleural fluid analysis showed exudative pleural fluid. Patient denies any pleuritic chest pain. Patient is the process of being transferred to [facility] her treating oncologist. Pulmonary perspective this is probably the best option, if patient continues to have rapid buildup of pleural fluid she could be considered for placement of Pleurx catheter. Objective - Vital Signs Vital signs: Vital Signs Temp 98.1 F 01/09/19 11:32 Pulse 81 01/09/19 11:32 Resp 16 01/09/19 11:32 BP 115/73 01/09/19 11:32 Pulse Ox 94 L 01/09/19 11:32 Intake & Output 01/08/19 01/09/19 01/09/19 18:59 06:59 18:59 Intake Total 550 Balance 550 Weight 81.647 kg Intake: Oral 550 Other: Voiding Method Bedside Commode Bedside Commode Bedside Commode # Voids 2 1 - Exam GENERAL EXAM: Alert, pleasant, 68-year-old white female, on 6 L oxygen with a pulse ox of 94% comfortable in no apparent distress. HEAD: Normocephalic/atraumatic. EYES: Normal reaction of pupils, equal size. Conjunctiva pink, sclera white. NOSE: Clear with pink turbinates. THROAT: No erythema or exudates. NECK: No masses, no JVD, no thyroid enlargement, no adenopathy. CHEST: No chest wall deformity. Symmetrical expansion. LUNGS: Equal air entry with no crackles, wheeze, rhonchi or dullness. Diminished breath sounds at the bases CVS: Regular rate and rhythm, normal S1 and S2, no gallops, no murmurs, no rubs ABDOMEN: Soft, nontender. No hepatosplenomegaly, normal bowel sounds, no guarding or rigidity. EXTREMITIES: No clubbing, mild lower extremity pretibial edema, no cyanosis, 2+ pulses and upper and lower extremities. MUSCULOSKELETAL: Muscle strength and tone normal. SPINE: No scoliosis or deformity SKIN: No rashes CENTRAL NERVOUS SYSTEM: Alert and oriented -3. No focal deficits, tone is normal in all 4 extremities. PSYCHIATRIC: Alert and oriented -3. Appropriate affect. Intact judgment and insight. - Labs CBC & Chem 7: 01/08/19 08:02 01/08/19 08:02 Labs: Microbiology - Last 24 Hours (Table) 01/08/19 10:26 Gram Stain - Preliminary Pleural Fluid Body Fluid Culture - Preliminary 01/08/19 10:26 Anaerobic Culture - Preliminary Pleural Fluid 01/07/19 13:17 Urine Culture - Final Urine,Voided 01/08/19 10:26 Fungal Culture - Preliminary Pleural Fluid 01/08/19 10:26 Acid Fast Bacilli Culture - Preliminary Pleural Fluid 01/07/19 14:05 Blood Culture - Preliminary Blood No Growth after 24 hours Assessment and Plan Plan: Assessment: #1. Acute dyspnea and acute on chronic hypoxemic respiratory failure related to bilateral pleural effusions #2. Recurrent pleural effusions, and recurrent ascites, possibly related to underlying history of ovarian cancer. Recent history of right-sided thoracentesis and paracentesis at the [facility] #3. Elevated d-dimer, rule out thromboembolic event #4. Recent diagnosis of ovarian cancer, recently started on chemotherapy, the details and the staging information not available to us #5. History of hypothyroidism #6. Hypertension #7. Anxiety #8. Nonsmoker Plan: Today's chest x-ray has been reviewed with Dr. Merino, and patient has a trapped lung at the right base, FiO2 is down to 6 L, cytology and pleural fluid cultures are pending, Gram stain is negative thus far, pleural fluid analysis revealed exudative fluid. If pleural fluid continues to rapidly reaccumulate patient could be considered for placement of Pleurx catheter. Being transferred to her treating oncologist at the [facility]. I performed a history & physical examination of the patient and discussed their management with my nurse practitioner, Marcy Carpenter. I reviewed the nurse practitioner's note and agree with the documented findings and plan of care. Lung sounds are positive for diminished breath sounds at the bases. The findings and the impression was discussed with the patient. I attest to the documentation by the nurse practitioner. Time with Patient: Less than 30
--- NOTE | 2019-01-09 18:39 | P.PN ---
Subjective Progress Note Date: 01/09/19 Patient seen and examined at bedside, reports that she had a bowel movement reports her breathing has not improved, although she has been weaned down to 8 L high flow nasal cannula since having her thoracentesis performed yesterday for approximately 750 mL of pleural fluid was removed from the right pleural space, chest x-ray shows basilar atelectasis with a trapped lung at the right lung base. Cytology is pending. Otherwise no acute events overnight, patient still waiting on bed at [facility] Objective - Vital Signs Vital signs: Vital Signs Temp 98.1 F 01/09/19 11:32 Pulse 81 01/09/19 15:36 Resp 16 01/09/19 15:36 BP 115/73 01/09/19 11:32 Pulse Ox 94 L 01/09/19 11:32 Intake & Output 01/08/19 01/09/19 01/09/19 18:59 06:59 18:59 Intake Total 550 420 Balance 550 420 Weight 81.647 kg Intake: Oral 550 420 Other: Voiding Method Bedside Commode Bedside Commode Bedside Commode # Voids 2 1 1 - Exam Constitutional: No acute distress, conversant, pleasant Eyes: Anicteric sclerae, moist conjunctiva, no lid-lag, PERRLA ENMT: NC/AT,Oropharynx clear, no erythema, exudates Neck:Supple, FROM, no masses, or JVD, No carotid bruits; No thyromegaly Lungs: Diminished in the bases Clear to percussion, Normal respiratory effort, n o accessory muscle use Cardiovascular: Heart regular in rate and rhythm, No murmurs, gallops, or rubs no peripheral edema Abdominal: Soft Nontender, nom distended, no guarding, no rebound or rigidity, Normoactive bowel sounds No hepatomegaly, No splenomegaly, No palpable mass No abdominal wall hernia noted Skin: Normal temperature, tone, texture, turgor, No induration No subcutaneous nodules, No rash, lesions, No ulcers Extremities:No digital cyanosis No clubbing, Pedal pulses intact and symmetrical Radial pulses intact and symmetrical Normal gait and station, No calf tenderness Psychiatric: Alert and oriented to person, place and time, Appropriate affect Intact judgement Neuro: Muscles Strength 5/5 in all 4 extremities, Sensation to light touch grossly present throughout, Cranial nerves II-XII grossly intact. No focal sensory deficits - Labs CBC & Chem 7: 01/08/19 08:02 01/08/19 08:02 Labs: Microbiology - Last 24 Hours (Table) 01/07/19 14:05 Blood Culture - Preliminary Blood No Growth after 48 hours 01/08/19 10:26 Gram Stain - Preliminary Pleural Fluid Body Fluid Culture - Preliminary 01/08/19 10:26 Anaerobic Culture - Preliminary Pleural Fluid 01/07/19 13:17 Urine Culture - Final Urine,Voided 01/08/19 10:26 Fungal Culture - Preliminary Pleural Fluid 01/08/19 10:26 Acid Fast Bacilli Culture - Preliminary Pleural Fluid Assessment and Plan (1) Acute and chronic respiratory failure ([id number]) Narrative/Plan: * Secondary to bilateral malignant pleural effusion superimposed on possible und erlying thromboembolic disease which is PE loading dose of therapeutic Lovenox given) * The patient refusing further workup with CTA chest * Scheduled to have thoracentesis later today * Continue supplemental oxygen, pulmonary consultation requested Current Visit: Yes Status: Acute Code(s): J96.20 - ACUTE AND CHR RESP FAIL URE, UNSP W HYPOXIA OR HYPERCAPNIA SNOMED Code(s): 68995409 (2) Intractable nausea and vomiting Narrative/Plan: * Likely secondary to the chemotherapy * Continue current antiemetic regimen with scopolamine patch Zofran and Phenerg an as needed Current Visit: Yes Status: Acute Code(s): R11.2 - NAUSEA WITH VOMITING, UNSPECIFIED SNOMED Code(s): 016199767 (3) Malignant pleural effusion Narrative/Plan: * Status post thoracentesis of 750 cc of fluid pleural studies analysis and cyto logy pending * Seen by pulmonary thinks that patient may be candidate for Pleurx catheter if the patient keeps reaccumulating fluid quickly Current Visit: Yes Status: Acute Code(s): J91.0 - MALIGNANT PLEURAL EFFUSION SNOMED Code(s): 02978406 (4) Weakness Narrative/Plan: * PTOT consulted recommendations pending Current Visit: Yes Status: Acute Code(s): R53.1 - WEAKNESS SNOMED Code(s): 70579027 (5) Ascites, malignant Current Visit: Yes Status: Acute Code(s): R18.0 - MALIGNANT ASCITES SNOMED Code(s): 129267841 (6) Ovarian cancer Current Visit: Yes Status: Acute Code(s): C56.9 - MALIGNANT NEOPLASM OF UNSPECIFIED OVARY SNOMED Code(s): 320954143 (7) Weakness Narrative/Plan: * Patient continues to work with physical therapy Current Visit: Yes Status: Acute Code(s): R53.1 - WEAKNESS SNOMED Code(s): 59144598 Plan: Post thoracentesis patient requesting transferred to [facility] for continue care and further workup. rehabilitation program coordinator and Dr. Hammonds is accepted the patient pending bed availability
[2019-01-10] MEDS: MORPHINE SULFATE 2 MG/ML SYRINGE IVP PRN ×3 (04:42→18:23)
[2019-01-10] MEDS: VENLAFAXINE HCL ER 150 MG CAP PO SCH (08:19)
[2019-01-10] MEDS: ALPRAZolam 0.5 MG TAB PO PRN (08:19)
[2019-01-10] MEDS: THYROID, PORK 30 MG TAB PO SCH (08:19)
[2019-01-10] MEDS: amLODIPine 10 MG TAB PO SCH (08:19)
[2019-01-10] MEDS: LEVOFLOXACIN 500MG-D5W PMX 500 MG in DEXTROSE/WATER 1 100ML.BAG IVPB SCH (08:20)
[2019-01-10] MEDS: ENOXAPARIN 80 MG/0.8 ML SYRINGE SQ SCH (08:20)
--- NOTE | 2019-01-10 08:47 | P.CONS ---
History of Present Illness - Reason for Consult Consult date: 01/09/19 Ovarian Cancer - History of Present Illness Ovarian Ca on chemo at [facility] Past Medical History Past Medical History: Thyroid Disorder History of Any Multi-Drug Resistant Organisms: None Reported Past Surgical History: Tonsillectomy Past Anesthesia/Blood Transfusion Reactions: No Reported Reaction Past Psychological History: Anxiety, Depression Smoking Status: Never smoker Past Alcohol Use History: Occasional Past Drug Use History: None Reported - Past Family History Mother Family Medical History: Unable to Obtain Father Family Medical History: No Reported History Medications and Allergies Home Medications Medication Instructions Recorded Confirmed Type Thyroid,Pork [[place] Thyroid] 90 mg PO DAILY #30 tab 02/27/17 01/07/19 Rx Venlafaxine HCl [Effexor XR] 150 mg PO DAILY 02/27/17 01/07/19 History ALPRAZolam [Xanax] 0.5 mg PO TID PRN 01/07/19 01/07/19 History amLODIPine [Norvasc] 10 mg PO DAILY 01/07/19 01/07/19 History Allergies Allergy/AdvReac Type Severity Reaction Status Date / Time penicillin V Allergy Unknown Verified 01/07/19 13:40 codeine AdvReac Nausea & Verified 02/27/17 14:17 Vomiting Physical Exam Vitals: Vital Signs Temp Pulse Resp BP Pulse Ox 01/10/19 05:00 98 F 81 16 128/76 92 L 01/10/19 00:00 16 01/09/19 21:16 98.5 F 87 16 125/76 93 L 01/09/19 15:36 81 16 01/09/19 11:32 98.1 F 81 16 115/73 94 L Intake and Output 01/09/19 01/10/19 01/10/19 22:59 06:59 14:59 Intake Total 780 Balance 780 Intake: Oral 780 Other: Voiding Method Bedside Commode Bedside Commode Bedside Commode # Voids 2 3 Results CBC & Chem 7: 01/08/19 08:02 01/08/19 08:02 Labs: Microbiology - Last 24 Hours (Table) 01/08/19 10:26 Acid Fast Bacilli Smear - Final Pleural Fluid Acid Fast Bacilli Culture - Preliminary 01/07/19 14:05 Blood Culture - Preliminary Blood No Growth after 48 hours 01/08/19 10:26 Gram Stain - Preliminary Pleural Fluid Body Fluid Culture - Preliminary 01/08/19 10:26 Anaerobic Culture - Preliminary Pleural Fluid Assessment and Plan Plan: D/W IM and Nsg. Pt does not want any Onc care here, and wants to be transferred to [facility]. Transfer process has been initiated. Therefore formal consult was not done
[2019-01-10 12:11] VITALS: BP 128/81; PULSE 89; RESP 20; TEMP 98.5
--- NOTE | 2019-01-10 12:12 | P.PN ---
Progress Note - Text Progress Note Date: 01/09/19 Patient has primary oncologist at outside hospital, would prefetr not to see another here, will inform Primary to cancel
[2019-01-10] MEDS: SCOPOLAMINE 1.5MG/72HR PATCH TRANSDERM SCH (15:21)
--- NOTE | 2019-01-10 17:57 | P.DS ---
Providers Date of admission: 01/09/19 07:18 Expected date of discharge: 01/10/19 Attending physician: Pan Jarvis MD Consults: 01/07/19 15:38 Consult Physician Routine Consulting Provider: Marlee Gamboa Consult Reason/Comments: thoracentesis Do you want consulting provider notified?: Yes 01/07/19 16:03 Consult Physician Routine Consulting Provider: Dhruv Melgar Consult Reason/Comments: ovarian CA Do you want consulting provider notified?: Yes Primary care physician: Stated None Hospital Course: Discharge Diagnosis: Recurrent malignant pleural effusion status post thoracentesis Intractable nausea and vomiting secondary to chemotherapy Acute on chronic hypoxic respiratory failure Generalized weakness Malignant ascites Ovarian cancer Normocytic anemia Moderate protein calorie malnutrition with albumin 2.7 Hospital Course: Patient is a 68-year-old female with recently diagnosed ovarian cancer who started chemotherapy on 01/[address] [facility], history of malignant ascites, history of pleural effusion who presented to the emergency department with complaints of nausea and vomiting and weakness. In the ER she underwent an extensive evaluation. She underwent a KUB which showed a nonspecific bowel gas pattern and haziness through the abdomen which could represent underlying ascites. Chest x-ray showed a moderate size pleural effusion and small left size pleural effusion. Remarkable labs included a white blood cell count of 11.7, hemoglobin 9.4, platelets 529, WEB SITE ADMIN N of 35. She was initially admitted as observation for intractable nausea and vomiting. She was started on Zofran scopolamine, and Phenergan as needed. She was started on IV fluids. Chest ultrasound was obtained and pulmonary was consulted. Chest ultrasound showed moderate right greater than left pleural effusions, abdominal ultrasound showed small to moderate ascites greatest in the right lower quadrant with mild complexity due to internal septations. She was seen by pulmonary who recommended CT chest to rule out pulmonary embolism, however patient refused this evaluation. She was then placed on therapeutic Lovenox but she has refused all dosing. She underwent lower extremity venous Dopplers which did not show any evidence of DVT. She underwent thoracentesis on the right with removal of 700 D and also fluid. Postoperative chest x-ray demonstrated a loculated right basilar pneumothorax, questionable right hilar mass most consistent with trapped lung. Again patient refused computed tomography scan. Patient wants to follow with [facility] that is where she has been following. Request was made for transfer to [facility] and she was accepted. Unfortunately patient did not have any beds on 01/08. She was maintained at a hospital but did not want further testing. Repeat chest x-ray again demonstrated a trapped right lung. She does not want to be seen by oncology at this facility. Case was again discussed with [facility] on 01/10 and a bed became available in the afternoon. Patient subsequently transferred to [facility] on the service of Dr. Cruz. He he was updated on her progress by myself. She'll be sent with a disc with all testing results. On 01/10 it became apparent that the patient was also seen at [facility] in [place] recently for second opinion and ended up hospitalized for malignant pleural effusion. We requested records but they did not arrive prior to transfer. Patient seen and examined at bedside. Still feeling weak, tolerating a diet. No vomiting today. Still with SOB. Denies any pain at this time. Patient seems to not full understand current medical conditions and prognosis. However, she just knows that she wants to be seen by physicians at [facility]. Vital signs reviewed and stable. General: Chronically ill appearing, no distress, appears at stated age Derm: warm, dry Head: atraumatic, normocephalic, symmetric Eyes: EOMI, no lid lag, anicteric sclera Mouth: no lip lesion, mucus membranes moist Cardiovascular: S1S2 reg, no murmur, positive posterior tibial pulse bilateral, Lungs: Crackles bilateral bases, no rhonchi, no rales , no accessory muscle use Abdominal: soft, nontender to palpation, no guarding, no appreciable organomegaly Ext: no gross muscle atrophy, no edema, no contractures Neuro: CN II-XI grossly intact, no focal neuro deficits Psych: Alert, oriented, flat affect A total of minutes of time were spent preparing this complex discharge summary . Pertinent Studies: as outlined above Procedures: Thoracentesis 01/08 Patient Condition at Discharge: Fair Plan - Discharge Summary New Discharge Prescriptions: No Action Venlafaxine HCl [Effexor XR] 150 mg PO DAILY Thyroid,Pork [[place] Thyroid] 90 mg PO DAILY #30 tab amLODIPine [Norvasc] 10 mg PO DAILY ALPRAZolam [Xanax] 0.5 mg PO TID PRN PRN Reason: Anxiety Discharge Medication List Thyroid,Pork [[place] Thyroid] 90 mg PO DAILY #30 tab 02/27/17 [Rx] Venlafaxine HCl [Effexor XR] 150 mg PO DAILY 02/27/17 [History] ALPRAZolam [Xanax] 0.5 mg PO TID PRN 01/07/19 [History] amLODIPine [Norvasc] 10 mg PO DAILY 01/07/19 [History] Follow up Appointment(s)/Referral(s): None,Stated [Primary Care Provider] - 1-2 days
[2019-01-11] MEDS ORDERED: LEVOFLOXACIN 500 MG TAB PO SCH (09:00)
== END 2019-01-10 20:04 | disposition other institution (70) | DRG 754 ==
LOC: EC 13:03 → 3NMEDONC 15:14 → OBSVTOIN 01-09 07:18
PROVIDERS: ADMIT Family Medicine; ATTEND Family Medicine
PROC: 0W993ZZ Drainage of Right Pleural Cavity, Percutaneous Approach (ICD-10-PCS; principal; 2019-01-08)
DX: C56.9 Malignant neoplasm of unspecified ovary (principal); J96.21 Acute and chronic respiratory failure with hypoxia; J91.0 Malignant pleural effusion; R18.0 Malignant ascites; E44.0 Moderate protein-calorie malnutrition; J98.11 Atelectasis; J93.83 Other pneumothorax; D63.0 Anemia in neoplastic disease; E03.9 Hypothyroidism, unspecified; E86.0 Dehydration; F32.9 Major depressive disorder, single episode, unspecified; F41.9 Anxiety disorder, unspecified; I10 Essential (primary) hypertension; R62.7 Adult failure to thrive; T45.1X5A Adverse effect of antineoplastic and immunosuppressive drugs, initial encounter; E66.9 Obesity, unspecified; R11.2 Nausea with vomiting, unspecified; Z79.890 Hormone replacement therapy; Z79.899 Other long term (current) drug therapy; Z99.81 Dependence on supplemental oxygen; Z88.5 Allergy status to narcotic agent; Z88.0 Allergy status to penicillin; Z68.34 Body mass index [BMI] 34.0-34.9, adult
CPT/HCPCS: 36415; 71045; 71046; 74018; 76604; 76705; 80053; 81001; 82550; 82553; 82945; 83615; 83735; 84157; 85025; 85379; 87040; 87070; 87075; 87086; 87102; 87116; 87205; 87206; 87252; 87496; 87498; 87502; 87529; 87634; 87798; 93005; 93970; 94760; 96361; 96374; 99285